=== PATIENT | female | born 1975 | race Asian ===

== ENCOUNTER 2024-09-28 21:10 | Emergency (ER) | payer OTHER, SELFPAY ==
[2024-09-28 21:17] VITALS: BP 148/87
[2024-09-28 23:46] VITALS: BMI 30.8
--- NOTE | 2024-09-29 00:03 | ED.GENMED ---
History of Present Illness
General
Chief Complaint: Fall
Time Seen by Provider: 09/29/24 00:01
History of Present Illness
History of Present Illness:
TIME OF INITIAL ENCOUNTER: 12:05 AM
HPI: The patient fell forward as she tripped and struck her left nostril on a bird cage. This caused a laceration to the lateral aspect of the left nostril. She denies any other injuries or concerns. There was no loss of consciousness.
EXAM:
GENERAL: Well appearing in no distress
HEENT: There is a 2.5 cm laceration involving the entire lateral aspect of the left nostril through and through, scant bleeding noted
NEUROLOGIC: Excellent strength all extremities, no obvious coordination deficits
PSYCHIATRIC: Appropriate mental status, normal insight and judgement
EXTREMITIES: Nontender, no edema, moves all extremities equally
SKIN: No rash, no lesions
NUMBER AND COMPLEXITY OF PROBLEMS ADDRESSED AT THE ENCOUNTER
� Chronic conditions affecting care: Back pain
� Acute Exacerbation and/or Progression of Chronic Illness: This is an acute problem
� Differential Diagnosis includes: Nasal laceration, nasal bone fracture unlikely based on exam
AMOUNT AND/OR COMPLEXITY OF DATA TO BE REVIEWED AND ANALYZED
� I performed an independent evaluation of and my interpretation is:
EKG:
CT:
X-rays:
Laboratory Studies:
Other:
� Review of other/old records: The patient was seen here in 2020 with traumatic compression fracture of L1
� Clinical information was obtained by an independent historian: Spoke to family at bedside
� Prescriptions/Medications Considered but not given:
� Further testing considered but not performed:
RISK OF COMPLICATIONS AND/OR MORBIDITY OR MORTALITY OF PATIENT MANAGEMENT
� Social determinants of health affecting care: Lives at home
� Discussion with other providers:
� Escalation of care including admission/observation vs risk of discharge considered: The wound was irrigated and cleaned with ChloraPrep and sutures were placed both on the inner aspect as well as the skin layer as well. She
was placed on antibiotics and tetanus was updated.
ANY OTHER UPDATES:
Past History
Past History
ED Past Medical History: None
ED Past Surgical History:
Social History
Tobacco: Non-smoker
Phy Exam
Physical Exam
Physical Exam:
See HPI
Course
Orders/Labs/Results
Orders:
Orders
09/29/24 00:20
Tetanus/Diphth/Acelpertussis [Adacel] 0.5 ml IM .ONCE ONE
09/29/24 00:53
Cephalexin Monohydrate [Keflex] 500 mg PO NOW STA
Vital Signs
Initial and Last Documented VS:
Initial Vital Signs
Temp Pulse Resp BP Pulse Ox
36.8 C 89 20 148/87 99
09/28/24 21:17 09/28/24 21:17 09/28/24 21:17 09/28/24 21:17 09/28/24 21:17
Last Documented Vital Signs
Temp Pulse Resp BP Pulse Ox
36.8 C 89 20 148/87 99
09/28/24 21:17 09/28/24 21:17 09/28/24 21:17 09/28/24 21:17 09/28/24 21:17
Procedures
Laceration Closure
Left Lateral Nose:
Description of Wound Edges: sharp
Preparation: cleaned with saline and other (Chlorhexidine)
Anesthesia: 1% Lidocaine
Revision/Debridement: routine- no revision
Wound exploration: explored to base- no FB
Type of Closure: layered closure
Skin Closure Material: 5-0 nylon and 5-0 vicryl
Number of sutures: 4
Additional information:
Two 5-0 nylon (skin) and two 5-0 Vicryl Rapide (inner nasal mucosa) were used
*Critical Care Note
Total Time (30-74mins, 75-104mins- exclusive of procedures): Not Applicable
ED Attending Note
-
Portions of this chart may have been created with voice recognition software.� Occasional wrong word or��sound alike� substitutions may have occurred due to the inherent limitations of voice recognition software.
Discharge Plan
Departure
Patient Disposition: Home (Routine Discharge)
Date of Disposition: 09/29/24
Time of Disposition: 00:53
Patient with high blood pressure during this ER visit?: Yes
Discharge Problem:
Complex laceration of nose
Instructions: Laceration Repair With Stitches (DC), BLOOD PRESSURE
Prescriptions:
No Action
oxycodone 5 MG tablet
5 mg PO Q4HPRN PRN (Reason: pain) Qty: 20 0RF
Referrals:
Ketty Sargent MD [Family Provider] -
Activity Restrictions/Additional Instructions:
I placed 2 dissolvable stitches to the inside of the nostril and then to nonabsorbable stitches on the skin surface�these 2 stitches should be removed by your doctor in approximately 5 to 7 days. Return here if worse or other concerns.
Interventions
Interventions:
*Risk Screen - Suicide Last Done: 09/28/24 23:46
*General Assessment Last Done: 09/28/24 21:17
*Neglect/Abuse Screening Last Done: 09/28/24 23:46
ED- Fall Risk Assessment Last Done: 09/28/24 23:46
*ED COVID-19 Vaccine History Last Done: 09/28/24 23:46
ED-Musculoskeletal Assessment Last Done: 09/28/24 23:46
ED- Neurological Assessment Last Done: 09/28/24 23:46
ED-Skin Assessment Last Done: 09/28/24 23:46
Discharge Date and Time
Print Language: PAKIST[place]
[2024-09-29] MEDS: KEFLEX 500 MG PO (01:11)
[2024-09-29] MEDS: ADACEL 0.5 ML IM (01:12)
[2024-09-29 01:21] VITALS: BP 137/80
== END 2024-09-29 01:23 | disposition home or self-care (01) ==
LOC: EMR 21:10
PROVIDERS: EMERGENCY PHYSICIAN Emergency Medicine; FAMILY PHYSICIAN Internal Medicine
DX: S01.21XA Laceration without foreign body of nose, initial encounter (principal); W01.198A Fall on same level from slipping, tripping and stumbling with subsequent striking against other object, initial encounter; Z23 Encounter for immunization; R03.0 Elevated blood-pressure reading, without diagnosis of hypertension
CPT/HCPCS: 12051; 99283; 90471; 90715